=== PATIENT | male | born 1965 | race Caucasian/White ===

== ENCOUNTER 2019-02-02 09:03 | Emergency (ER) | payer BC ==
[2019-02-02 09:24] VITALS: BP 155/83
--- NOTE | 2019-02-02 09:42 | UC ---
Ear Complaint HPI - HPI Summary HPI Summary: Pt presents with c/o left ear ache X 1 week that radiates down left side of neck. Pt also has mild URI like symptoms. Pt states that he has been feeling occasionally dizzy/off balance had muffled sounds. Pt reports that he put "peroxide" in his left ear and had improvement of muffled sound. Pt states that he "went drinking last night" and is hungover at today's visit. Pt has hx of basal carcinoma on left side of face/cheek and posterior left side of head at hairline. Pt had basal carcinoma removed on left side of face just anterior of left ear. - History of Current Complaint Stated Complaint: LT EAR COMPLAINT Time Seen by Provider: 02/02/19 09:11 Hx Obtained From: Patient Onset/Duration: Gradual Onset, Lasting Days, Still Present Severity Initially: Moderate Severity Currently: Moderate Pain Intensity: 7 Aggravating Factors: Nothing Alleviating Factors: Nothing Associated Signs/Symptoms: Positive: Hearing Loss, URI Symptoms Related History: Smoking - Allergies/Home Medications Allergies/Adverse Reactions: Allergies Allergy/AdvReac Type Severity Reaction Status Date / Time No Known Allergies Allergy Verified 02/02/19 09:12 Home Medications: Home Medications Acetaminophen [Non-Aspirin Extra Strengt] 500 mg PO PRN 02/02/19 [History] Ibuprofen/Diphenhydramine Cit [Advil Pm Caplet] 1 each PO BEDTIME 02/02/19 [ History Confirmed 02/02/19] Lisinopril/Hydrochlorothiazide [Lisinopril-Hctz 10-12.5 mg Tab] 1 each PO DAILY 02/02/19 [History Confirmed 02/02/19] Omeprazole CAP (NF) [Prilosec CAP* 20 MG] 20 mg PO DAILY 02/02/19 [History Confirmed 02/02/19] PMH/Surg Hx/FS Hx/Imm Hx Previously Healthy: Yes Cardiovascular History: Hypertension Cancer History: Other - basal cell carcinoma - Surgical History Surgical History: Yes Surgery Procedure, Year, and Place: TWO KNEE SURGERIES. EXCISION BASAL CELL CA CHEEK AND POSTERIOR SCALP - Family History Known Family History: Positive: Cardiac Disease - Social History Occupation: Employed Full-time Alcohol Use: Weekly Substance Use Type: None Smoking Status (MU): Heavy Every Day Tobacco Smoker Length of Time of Smoking/Using Tobacco: 30 YEARS AGO Have You Smoked in the Last Year: Yes Review of Systems All Other Systems Reviewed And Are Negative: Yes Constitutional: Positive: Negative Skin: Positive: Negative Eyes: Positive: Negative ENT: Positive: Ear Ache - left Respiratory: Positive: Negative Cardiovascular: Positive: Negative Gastrointestinal: Positive: Negative Genitourinary: Positive: Negative Motor: Positive: Negative Neurovascular: Positive: Negative Musculoskeletal: Positive: Negative Neurological: Positive: Negative Psychological: Positive: Negative Is Patient Immunocompromised?: No Physical Exam Triage Information Reviewed: Yes Appearance: Well-Appearing Vital Signs: Initial Vital Signs Temp 98.3 F 02/02/19 09:17 Pulse 89 02/02/19 09:17 Resp 15 02/02/19 09:17 BP 155/83 02/02/19 09:17 Pulse Ox 100 02/02/19 09:17 Vital Signs Reviewed: Yes Eye Exam: Normal ENT: Positive: Normal ENT inspection, Other - tiny pion hole size opening in left TM at ~ 11- 12 o'clock position Dental Exam: Normal Neck exam: Normal Neck: Positive: Supple, Nontender, No Lymphadenopathy Respiratory Exam: Normal Respiratory: Positive: No respiratory distress Musculoskeletal Exam: Normal Neurological Exam: Normal Psychological Exam: Normal Skin Exam: Other - scar noted on left side of facial cheek just anterior to left ear Ear Complaint Course/Dx - Course Course Of Treatment: I discussed with pt the need to follow up with PCP if symptoms do not improve and due to basal cell carcinoma hx. Additonally, I discussed with the pt the minimal use of NSAIDS given his HTN. Pt was also instructed to not use OTC cougha nd cold medications that coudl elevate his BP. Pt verbalized understanding and agreed to plan of care. - Differential Dx/Diagnosis Differential Diagnosis/HQI/PQRI: Otitis Media, Perforated TM, Trigeminal Nueralgia Provider Diagnosis: Tympanic membrane perforation, Ear ache Discharge ED - Sign-Out/Discharge Documenting (check all that apply): Patient Departure All imaging exams completed and their final reports reviewed: No Studies - Discharge Plan Condition: Stable Disposition: HOME Patient Education Materials: Earache (ED) Referrals: Yakelin Marks PA [Primary Care Provider] - If Needed Additional Instructions: Please follow up with your PCP as needed. If your ear ache does not improve or worsens see your PCP as soon as possible. Please use ibuprofen and naproxen sodium only sparingly. Please use Tylenol as your primary OTC analgesic and fever manager nicu. 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 - Billing Disposition and Condition Condition: STABLE Disposition: Home
== END 2019-02-02 09:52 | disposition home or self-care (01) ==
LOC: UCCORT 09:03
DX: H72.92 Unspecified perforation of tympanic membrane, left ear (principal); H92.02 Otalgia, left ear; M54.2 Cervicalgia; R42 Dizziness and giddiness; I10 Essential (primary) hypertension; F17.290 Nicotine dependence, other tobacco product, uncomplicated; Z85.828 Personal history of other malignant neoplasm of skin
CPT/HCPCS: 99212; G0463